=== PATIENT | male | born 1965 | race Caucasian/White ===

== ENCOUNTER 2019-01-11 11:12 | Emergency (ER) | payer OTHER, SELFPAY ==
[2019-01-11 11:13] VITALS: BP 156/97; PULSE 88; RESP 20; TEMP 36.5; O2SAT 99; BMI 27.8
--- NOTE | 2019-01-11 11:18 | EKG12_ITS ---
Test Reason : GENERAL ILLNESS
--- NOTE | 2019-01-11 11:18 | RAD_ITS ---
STUDY: X-RAY CHEST REASON FOR EXAM: Male, 53 years old. Cough and fever. Chest pain. TECHNIQUE: PA and lateral views of the chest. COMPARISON: None. FINDINGS: Hyperinflation. Mild increase in markings at the lung bases suggesting mild scarring. There is no demonstrated pleural abnormality. Normal size heart. Normal mediastinum and [place]. Normal visualized pulmonary arteries. There is atherosclerotic tortuosity of the aortic arch and descending thoracic aorta. There are diffuse degenerative changes of the visualized thoracic spine. Normal visualized ribs, clavicles, and shoulders. There is no demonstrated abnormality of the visualized soft tissue structures of the upper abdomen. RAD/Chest PA and Lateral IMPRESSION: Hyperinflation. Findings suggestive of mild scarring at the lung bases. Electronically Signed: Augustin Clark, at 12:30 EST , Service support ,
[2019-01-11 11:39] VITALS: BP 148/92; PULSE 90; RESP 14; RESP 18; O2SAT 97; O2SAT 98
--- NOTE | 2019-01-11 14:07 | ED.VISSUMM ---
- ER Visit Summary Date of Service: 01/11/19 Chief Complaint: Fever and cough History of Present Illness: The patient is a 53 M who states that last week at the end of the week he was having diarrhea. Friday he began to have a cough and the diarrhea resolved. Around noon on Friday he developed nausea vomiting. Temperature yesterday 102.8. He notes continued weakness and cough though he has not had any fever. He describes a chest pain on the anterior surface that is sharp and worse with touch. Physical Examination: Afebrile vital signs stable Gen: Well-nourished well-developed Head: Normocephalic atraumatic Eyes: Perrl EOMI ENT: TMs clear no rhinorrhea moist mucous membranes Neck: Supple no lymphadenopathy no JVD nontender CVS: Regular rate rhythm no murmurs normal S1-S2 Respiratory: No distress clear to auscultation bilaterally anterior chest wall is tender to palpation. He has a dry cough. Abdomen: Soft nontender nondistended normal bowel sounds no masses Back: Nontender Extremity: Nontender no edema Skin: Normal color no rash Neuro: alert orientated ?3 CN II-XII intact normal strength sensation reflexes gait cerebellar Psych: Normal affect normal mood Test Results: KG through nursing protocol showed a sinus rhythm at a rate of 85 without ectopy. Chest x-ray showed no infiltrate. Influenza swab was negative. Emergency Department Course and Treatment: Patient will be discharged home with supportive care. Instructions for fluid hydration and anti-inflammatories for the chest pain. Impression: 1. Viral respiratory illness This note was generated with [employer] dictation software. It may contain incorrect words, spelling, and punctuation that were not noted in review of the chart prior to signing ED Disposition - Plan for ED Patient: Disposition: Home or Assisted Living Instructions: ED URI Viral Referrals: Adalberto Grant MD [STAFF PHYSICIAN] - As Needed
[2019-01-11 14:18] VITALS: BP 133/80; PULSE 85; RESP 14; O2SAT 98
== END 2019-01-11 14:19 | disposition home or self-care (01) ==
PROVIDERS: Emergency Provider Emergency Medicine
DX: B34.9 Viral infection, unspecified (principal); M54.9 Dorsalgia, unspecified; R19.7 Diarrhea, unspecified; R11.2 Nausea with vomiting, unspecified; Z72.0 Tobacco use; R05 Cough; R53.1 Weakness
CPT/HCPCS: 71046; 87804; 93005; 94760; 99282

== ENCOUNTER → 2019-07-15 14:19 | Outpatient (CLI) | payer OTHER, SELFPAY ==
[2019-07-15 08:09] VITALS: BMI 27.8
[2019-07-15 14:48] LABS: Bacteria 0 SEEN /hpf (None Seen); Mucous, Urine 0 SEEN /hpf (<or=2+); Red Blood Cells-Urine 0 SEEN /hpf (0-5)
[2019-07-15 14:59] LABS: Color, Urine Yellow (Yellow); Glucose, Dipstick Normal (Normal); Ketone-Dipstick Negative (Negative); Leukocyte Esterase-Dipstick 25 /ul (Negative); Nitrite-Dipstick Negative (Negative); Occult Blood-Urine 10 /ul (Negative); Protein-Dipstick Negative (Negative); Urine Bilirubin Dipstick Negative (Negative); Urine Clarity Clear (Clear); Urine Urobilinogen Normal (Normal)
[2019-07-15 15:17] LABS: Squamous Epithelial Cells - UA 0-5 SEEN /hpf (0-5); White Blood Cells 0-5 SEEN /hpf (0-5)
== END ==
PROVIDERS: Referring Provider Physician Assistant; Visit Provider Physician Assistant
DX: R31.9 Hematuria, unspecified (principal)
CPT/HCPCS: 81001; 87086

== ENCOUNTER 2019-07-17 08:16 | Observation (INO) | payer OTHER, SELFPAY ==
[2019-07-15 08:09] VITALS: BMI 27.8
[2019-07-17] VITALS (7 sets, daily range): BP systolic 124–156; BP diastolic 72–106; PULSE 83–127; RESP 17–20; TEMP 37–38.1; O2SAT 90–94; BMI 28.4; BMI 28.7
--- NOTE | 2019-07-17 08:24 | CT_ITS ---
STUDY: CT ABDOMEN AND PELVIS WITHOUT CONTRAST REASON FOR EXAM: Male, 54 years old. Right flank pain RADIATION DOSAGE (If Supplied By Facility): CTDIvol = ( 10.09 ) mGy, DLP = ( 529.18 ) mGycm TECHNIQUE: Transaxial images were obtained from the dome of the diaphragm to the symphysis pubis without oral contrast, and without intravenous contrast. Sagittal and coronal images were reconstructed. Individualized dose optimization techniques were used for this CT. COMPARISON: None. FINDINGS: Right pleural effusion with basilar consolidation/atelectasis. The visualized portions of the heart are within normal limits. Normal liver. Normal gallbladder and extrahepatic biliary system. Normal spleen. Normal pancreas. Normal bilateral adrenal glands. Nonobstructive 2 mm stone in the right kidney. Normal left kidney. Normal visualized stomach. Normal small intestine. Normal colon. The appendix is visualized and appears normal. Calcified abdominal aorta. Normal inferior vena cava. Normal retroperitoneum. Normal urinary bladder. Mild fatty density at the inguinal canals. Normal abdominal wall. Normal osseous structures. CT/Abdomen/Pelvis without Cont IMPRESSION: Nonobstructive right renal stone. Right pleural effusion with basilar consolidation/atelectasis. Electronically Signed: Jermain Dominique DO at 9:10 EDT Tel [phone], Service support ,
[2019-07-17] MEDS: Ondansetron 4 MG/2 ML Vial IV ×2 (08:29→12:13)
[2019-07-17] MEDS: Ketorolac 30 MG/ML Syringe 15 MG IV (08:29)
[2019-07-17] MEDS: 0.9% Normal Saline 1,000 ML 250 ML IV (08:32)
--- NOTE | 2019-07-17 08:38 | ED.DCSUM_ITS ---
History of Present Illness Chief Complaint: Flank Pain Narrative: Patient presenting due to concern for kidney stone. Patient has an underlying history of having a kidney stone approximately 20 years ago. Patient states that over the course of this last week he has been dealing with intermittent hematuria and right-sided flank pain. Patient states that there was one episode where he had a fever of 100.0. He now is having some nausea and dry heaves. Pain is severe, colicky, and has no exacerbating relieving factors. Patient states that he went to urgent care and was diagnosed as likely having a kidney stone, but has not had any sort of imaging. He denies any diarrhea associated with this. He denies any back injury, numbness, weakness, loss of bowel or bladder function. Review of systems otherwise negative. Past Medical History - Allergies and Home Meds Allergies/Adverse Reactions: Allergies No Known Allergies Allergy (Verified 07/17/19 08:16) Primary Care Physician: Carlo Banda MD [STAFF PHYSICIAN] - 3-5 Days Past Medical History: - - Past history of nephrolithiasis Smoking Status: Current every day smoker Review of Systems All systems negative except as indicated General: Reports: Fever Gastrointestinal: Reports: Nausea, Vomiting Genitourinary: Reports: Hematuria, - - Flank pain Physical Exam Vital Signs/Narrative: Vital Signs Temp Pulse Resp BP Pulse Ox 07/17/19 08:17 98.6 F 83 17 124/72 H 92 Inital Vital Signs reviewed: Yes General: Well nourished, Well developed, Acute Distress - Secondary to pain Head: Normocephalic, Atraumatic Eyes: Perrl, EOMI ENT: Moist mucous membranes, No rhinorrhea Neck: Supple, Nontender Cardiovascular: Regular rate, Regular rhythm, No murmurs, - - 2+ radial pulses bilaterally symmetric, 2+ PT pulses bilaterally symmetric Respiratory: No distress, CTA bilaterally, Chest nontender Abdomen: Soft, Nontender, Nondistended, Normal bowel sounds, - - Right-sided CVA tenderness to percussion without evidence of overlying vesicular rash, deformity, or skin changes Back: Nontender, Normal Inspection Extremities: Nontender, No edema Skin: Normal color, No rash Neurological: Alert, Oriented x3, Cranial nerves II-XII grossly intact, Normal Strength, Normal Sensation Psychological: Normal affect, Normal Mood Diagnostic/Tx/Re-eval - EKG Initial EKG Interpretation: - - Sinus rhythm of 85 with isoelectric with normal T waves no evidence of right particular strain or S1, Q3, T3 morphology - Medical Decision Making Patient with significant flank pain. IV was established she was given Toradol morphine Zofran and fluids. CBC and chemistry grossly unremarkable. CT abdomen and pelvis was performed which ended up showing the patient rather than having a obstructive stone on the right side, he had a nonobstructive stone in the kidney, but has a sizable pleural effusion with infiltrate. I went back and reinterviewed the patient, and he states that his symptoms really started more so with malaise and pleuritic chest pain. Only recent travel was over the summer to and from [place], but nothing within the last couple of weeks. No recent surgeries, hemoptysis, or history of DVT or PE. Patient is an everyday smoker. CT angiogram demonstrated no evidence of pulmonary embolus, but shows infiltrative process in the right lung with associated effusion. Patient had a leukocytosis of 14. At this point given the severity of the patient's pain, the high likelihood of a transudate of effusion, I believe that he warrants admission. Patient's will have blood cultures drawn, will be given Rocephin and azithromycin, and will be admitted to the hospital. Disposition: Admit to Med Surg ED Disposition - Plan for ED Patient: [facility] Diagnosis: Pneumonia, Pleural effusion
[2019-07-17 08:39] LABS: Basophil# 0.03 X10^3/uL; Basophil% 0.2 % (0-1); Eosinophils% 3.5 % (0-5); Hematocrit 46.7 % (40-54); Hemoglobin 15.2 g/dL (13.0-16.5); Lymphocyte % 19.6 % (19-41); Mean Corp Hgb Conc 32.5 g/dL (32-36); Mean Corpuscular Hgb 30.2 pg (27.0-32.0); Mean Corpuscular Volume 92.7 fL (80-94); Mean Platelet Vol. 9.8 fl (6.2-12.0); Monocyte# 0.95 X10^3/uL; Monocyte% 6.6 % (0-10); NRBC Flagged by Analyzer 0 % (0-5); Neutrophil # 9.98 X10^3/uL (2.7-7.7); Neutrophil % 69.7 % (47-70); Platelet Count 317 K/mm3 (150-450); RBC Distribution Width CV 13.1 % (11.6-14.6); RBC Distribution Width SD 44.7 fl (35.1-43.9); Red Blood Count 5.04 M/mm3 (4.6-6.2); White Blood Count 14.3 K/mm3 (4.4-11.0)
[2019-07-17] MEDS: morphine 8 MG/ML Syringe IV (08:39)
[2019-07-17 08:51] LABS: Anion Gap 3 (5-15); BUN 11 mg/dL (7-18); Calcium,Total 9.1 mg/dL (8.5-10.1); Chloride 107 mmol/L (98-107); Creatinine, Serum 0.92 mg/dL (0.70-1.30); EST Glomerular Filtration Rate 91 mL/min (>60); Est Glom Filt Rate - Afr Amer 110 mL/min (>60); Estimated Creatinine Clearance 86.74 ml/min; Glucose 107 mg/dL (74-106); Sodium Level 139 mmol/L (136-145)
--- NOTE | 2019-07-17 09:11 | CT_ITS ---
STUDY: CTA CHEST REASON FOR EXAM: Male, 54 years old. PE RADIATION DOSAGE (If Supplied By Facility): CTDIvol = ( 8.30 ) mGy, DLP = ( 402.29 ) mGycm TECHNIQUE: The examination was performed with the intravenous administration of 100 IV Isovue 300. Post-processing of the angiographic images was performed, with multiplanar reformation and 3D reconstruction. Individualized dose optimization techniques were used for this CT. COMPARISON: None. FINDINGS: Normal enhancement of the main pulmonary artery and right and left pulmonary arteries. Normal enhancement of the bilateral peripheral pulmonary arteries. There is no demonstrated pulmonary embolism. Normal thoracic aorta and visualized great vessels. There is no demonstrated aortic dissection. Normal heart and pericardium. Normal mediastinum. Normal hilar regions. Normal visualized trachea and bronchi. The lungs are well expanded. Mild right pleural effusion with basilar consolidation/atelectasis. Normal chest wall structures. Normal osseous structures. Normal visualized upper abdomen. CT/CTA Chest W/WO Contrast IMPRESSION: No demonstrated pulmonary embolism or arterial dissection. Right pleural effusion with basilar consolidation/atelectasis. Electronically Signed: Jermain Dominique DO at 10:03 EDT Tel [phone], Service support ,
--- NOTE | 2019-07-17 09:13 | EKG12_ITS ---
Test Reason : DYSRHYTHMIA Blood Pressure : / mmHG Vent. Rate : 085 BPM Atrial Rate : 085 BPM P-R Int : 170 ms QRS Dur : 090 ms QT Int : 352 ms P-R-T Axes : 015 001 020 degrees QTc Int : 418 ms Normal sinus rhythm Normal ECG Confirmed by FAMILIA GARCIA [id number]), senior technical editor ERIK SALAZAR ([id number]) on 07/26/2019 2:56:41 PM Referred By: Odilon Tatum Confirmed By:FAMILIA GARCIA
[2019-07-17] MEDS: Morphine 4 MG/ML Syringe IV ×2 (10:18→13:43)
[2019-07-17] MEDS: Ceftriaxone 1 GM/50 ML BAG IV (10:27)
--- NOTE | 2019-07-17 10:38 | PCM.HP.STD ---
Problem List (1) Community acquired pneumonia Status: Acute (2) History of kidney stones Status: Chronic (3) Tobacco abuse Status: Chronic (4) Pleural effusion Status: Acute History of Present Illness Date of Admission: 07/17/19 Chief Complaint: Right lower chest/right flank pain. The patient is a 54 year old M with past medical history as mentioned above presented to the emergency room because of 1 week history of right lower chest/right flank pain. His illness started 1 week ago with pain in the right flank region, more up towards right lower chest, intermittent pain, sharp stabbing pain, 9 out of 10 in severity, associated with mild shortness of breath, aggravated by taking a deep breath and somewhat relieved with ibuprofen and Tylenol. Initially, patient thought that this pain is probably due to kidney stones because he has history of kidney stones. He continued to have this pain in the next 3 to 4 days and on Friday, he started having low-grade fever of just above 100 Fahrenheit. Again, he took Tylenol Profen and the fever went away. This pain came back again and patient went to see his PCP 2 days ago where he had urinalysis, found to have some blood in the urine and thinking was told that he may have kidney stones. During those days, he has been having mild cough with small amount of thick green sputum. In the emergency department, patient was afebrile, having shallow breathing because of pleuritic chest pain, other vital signs were stable. Routine blood work was remarkable for leukocytosis, otherwise normal. EKG revealed normal sinus rhythm, normal IL interval, normal QRS, no acute ischemic changes. Troponin was negative. CT scan abdomen and pelvis without contrast revealed nonobstructive right kidney stone, right pleural effusion consolidation. CTA chest done and showed no PE or dissection, revealed right pleural effusion with right basilar consolidation. He is being admitted for community acquired pneumonia. Past Medical History Past Medical History (Chronic Problems): Chronic Problems (Last Reviewed 07/15/19 @ 08:09 by Camila Gee) History of kidney stones (Chronic) Tobacco abuse (Chronic) Allergies No Known Allergies Allergy (Verified 07/17/19 08:16) Home Medications: Ambulatory Orders Medication Instructions Recorded ibuprofen 600 mg tablet 600 mg PO Q6H PRN 07/15/19 Surgical History: no surgical history Psychiatric History: No pertinent psych hx Lives: Spouse/ Significant Other Smoking Status: Current every day smoker Tobacco Use: Cigarettes Alcohol: None Drugs: None - *Family History Maternal History Items: Cancer, Diabetes, - - Mother because of liver cancer. Paternal History Items: Diabetes Review of Systems Constitutional: Reports: Anorexia, Fever, Weakness, Fatigue. Denies: Chills Eyes: Denies: Blurred vision, Double vision, Drainage, Redness HEENT: Denies: Difficulty Hearing, Ear Pain, Eye Pain, Nasal Congestion, Sore Throat Cardiovascular: Reports: Chest Pain. Denies: Chest Pressure, Chest Tightness, Edema, Heaviness, Orthopnea, Paroxysmal Noc. Dyspnea, Syncope Respiratory: Reports: Cough, Pleuritic Pain, Shortness of Breath, Shortness of breath at rest, Sputum production. Denies: Hemoptysis, Wheezing Gastrointestinal: Reports: Nausea. Denies: Abdominal Pain, Constipation, Diarrhea, Vomiting Genitourinary: Reports: Hematuria. Denies: Dysuria, Frequency Musculoskeletal: Denies: Arm Pain, Back Pain, Foot Pain Skin: Denies: Dryness, Rash Neurological: Denies: Balance problems, Blurred vision, Double vision, Change in Speech, Slurred speech, Confusion, Headaches, Incoordination, Numbness Psychiatric: Denies: Anxiety, Depression Endocrine: Denies: Change in Body Habitus, Polydipsia, Polyuria VTE Information - Inpt Only VTE Present on Admission: No VTE Mechan Device Prophylaxis: None VTE Pharm Prophylaxis ordered?: No Patient Problems: Active and Suspected Problems (Last Reviewed 07/15/19 @ 08:09 by Camila Gee) Community acquired pneumonia (Acute) Pleural effusion (Acute) - Physical Exam General: Alert, Oriented x3, Cooperative, No apparent distress HEENT: Atraumatic, PERRLA, EOMI, Normocephalic Oral: Moist Mucosa, No Gingival or Mucosal Lesions/ Ulcerations Neck: Supple, No JVD, Negative Carotid Bruits, Trachea Midline, Thyroid Normal Size and Texture Lungs: No rhonchi, No wheeze, Diminished, Rales, - - Decreased breath sounds on the right base with coarse crackles. Cardiovascular: Regular rate, Regular Rhythm, Normal S1, Normal S2, No murmurs, PMI Normal Abdomen: Bowel Sounds Present, Soft, Non Tender, Non-Distended, No Hepato-splenomegaly Extremities: No clubbing, No cyanosis, No edema Skin: No rashes, No breakdown Lymphatic: No Cervical, Supraclavicular, or Inguinal Adenopathy Neurological: Cranial nerves II-XII grossly intact, Motor Exam 5/5 strength throughout Psych/Mental Status: Normal Affect, Appropriate, Alert and oriented to time, place, person, mood and affect Vital Signs Temp Pulse Resp BP Pulse Ox 98.6 F 83 17 124/72 H 92 07/17/19 08:17 07/17/19 08:17 07/17/19 08:17 07/17/19 08:17 07/17/19 08:17 Oxygen Delivery Method Room Air Weight: 186 lb 15.232 oz Body Mass Index (BMI) 28.4 Laboratory Tests Past 24 Hrs 07/17/19 07/17/19 07/17/19 08:25 08:25 08:25 WBC 14.3 H RBC 5.04 Hgb 15.2 Hct 46.7 MCV 92.7 MCH 30.2 MCHC 32.5 RDW Std Deviation 44.7 H RDW Coeff of Sharona 13.1 Plt Count 317 MPV 9.8 Immature Gran % (Auto) 0.400 Neut % (Auto) 69.7 Lymph % (Auto) 19.6 [place] % (Auto) 6.6 Eos % (Auto) 3.5 Baso % (Auto) 0.2 Absolute Neuts (auto) 10.0 H Absolute Lymphs (auto) 2.80 Nucleated RBC % 0 Sodium 139 Potassium 4.0 Chloride 107 Carbon Dioxide 29.0 Anion Gap 3 L BUN 11 Creatinine 0.92 Estim Creat Clear Calc 86.74 Est GFR (MDRD) Af Amer 110 Est GFR (MDRD) Non-Af 91 BUN/Creatinine Ratio 12.0 Glucose 107 H Calcium 9.1 Troponin I < 0.015 Clinical Impression(s) from Imaging Studies Abdomen/Pelvis CT 07/17/19 08:24 IMPRESSION: Nonobstructive right renal stone. Right pleural effusion with basilar consolidation/atelectasis. Electronically Signed: Jermain Dominique DO at 9:10 EDT Tel [phone], Service support , Chest CTA 07/17/19 09:11 IMPRESSION: No demonstrated pulmonary embolism or arterial dissection. Right pleural effusion with basilar consolidation/atelectasis. Electronically Signed: Jermain Dominique DO at 10:03 EDT Tel [phone], Service support , Assessment/Plan All Active Problems (Last Reviewed 07/15/19 @ 08:09 by Camila Gee) Community acquired pneumonia (Acute) Pleural effusion (Acute) This is a 54 years old male patient presented to the emergency room because of right lower/right flank pain with mild shortness of breath, elective cough with minimal sputum as well as low-grade fever and he was found to have right lower lobe consolidation with right pleural effusion and he is being admitted for community acquired pneumonia. #1 acute right lower lobe probably bacterial community acquired pneumonia: CTA chest reviewed. Patient's pain is likely due to pleuritic chest pain/pleurisy. EKG showed no acute ischemic changes. Troponin is negative. Her leukocytosis, no evidence of sepsis or severe sepsis. Plan: Admit to [facility] floor, telemetry, blood culture, urine culture, sputum culture, pneumococcal and Legionella antigen, start IV Rocephin and Zithromax, IV morphine PRN, IV Toradol [id number], Tylenol PRN, IV antiemetics, bronchodilators, chest physiotherapy, incentive spirometer, repeat CBC and BMP tomorrow morning, PT OT evaluation and treatment. #2 right pleural effusion: Likely parapneumonic effusion. At this time, no indication for diagnostic or therapeutic thoracentesis. Patient will need follow-up x-ray to ensure resolution of the pleural effusion. Plan to treat underlying pneumonia. #3 hematuria/history of kidney stones: Urinalysis that was done therefore yesterday showed moderate amount of blood, there was 0 WBCs microscopically. Patient did mention that his urine has been dark. CT scan abdomen and pelvis revealed nonobstructing right kidney stone. Urinalysis ordered today, pending. Plan for IV fluids, monitor kidney function. #4 tobacco abuse: NicoDerm patch if desired. #5 DVT prophylaxis: Low risk patient, no prophylaxis indicated. This note was generated with [employer] software. It may contain incorrect words, spelling, and punctuation that were not noted in checking the note before signing. Code Visit Inpatient E&M: 01706 Init Hosp L3
--- NOTE | 2019-07-17 11:30 | NURSING ---
rocephin and zithromax not on unit for pt administration
--- NOTE | 2019-07-17 11:51 | NURSING ---
pt /staff made aware of need for urine specimens and sputum specimen that needs obtained
[2019-07-17] MEDS: guaiFENesin 1,200 MG Tablet 1200 MG PO (12:05)
[2019-07-17] MEDS: 0.9% Normal Saline 1,000 ML 100 ML IV (12:05)
[2019-07-17] MEDS: Morphine 2 MG/ML Syringe IV (12:06)
[2019-07-17] MEDS: Ipratropium/Albuterol Sulfate 3 ML AMPUL.NEB INHALATION (13:12)
[2019-07-17 13:14] LABS: Bacteria 0 SEEN /hpf (None Seen); Mucous, Urine 0 SEEN /hpf (<or=2+); Red Blood Cells-Urine 0 SEEN /hpf (0-5)
[2019-07-17 13:30] LABS: Color, Urine Yellow (Yellow); Glucose, Dipstick Normal (Normal); Ketone-Dipstick 5 mg/dl (Negative); Leukocyte Esterase-Dipstick 25 /ul (Negative); Nitrite-Dipstick Negative (Negative); Occult Blood-Urine 50 /ul (Negative); Protein-Dipstick 30 mg/dl (Negative); Urine Bilirubin Dipstick Negative (Negative); Urine Clarity Clear (Clear); Urine Urobilinogen 1 mg/dl (Normal)
[2019-07-17] MEDS: Ketorolac 15 MG/ML Vial IV (13:39)
[2019-07-17 13:40] LABS: Squamous Epithelial Cells - UA 0-5 SEEN /hpf (0-5); White Blood Cells 0-5 SEEN /hpf (0-5)
--- NOTE | 2019-07-17 14:23 | NURSING ---
dr spencer came to reexamine pt and discuss care with pt-dr spencer offerred him dilaudid instead of morphine but pt actually states his pain is good right now, pt requesting to go off unit to smoke, was offerred nicotine patch and pt refusing pt demands to sign out AMA, pt signed form and was escorted out per family
--- NOTE | 2019-07-19 14:45 | PCM.DC.SUM ---
Discharge Date and Diagnosis Date of Admission: 07/17/19 Date of Discharge: 07/17/19 - Primary Discharge Diagnosis #1 right lower lobe community-acquired pneumonia. 2 right pleural effusion, likely parapneumonic. - Secondary Discharge Diagnosis Chronic Problems (Last Reviewed 07/15/19 @ 08:09 by Camila Gee) History of kidney stones (Chronic) Tobacco abuse (Chronic) Hospital Course and Treatment Imaging Results: Clinical Impression(s) from Imaging Studies Abdomen/Pelvis CT 07/17/19 08:24 IMPRESSION: Nonobstructive right renal stone. Right pleural effusion with basilar consolidation/atelectasis. Electronically Signed: Jermain Dominique DO at 9:10 EDT Tel [phone], Service support , Chest CTA 07/17/19 09:11 IMPRESSION: No demonstrated pulmonary embolism or arterial dissection. Right pleural effusion with basilar consolidation/atelectasis. Electronically Signed: Jermain Dominique DO at 10:03 EDT Tel [phone], Service support , Operations: None Procedures: None Summary of Care Provided: The patient is a 54 year old M presented to the emergency room because of right lower chest/right flank pain with mild shortness of breath and productive cough as well as low-grade fever and he was found to have right lower lobe consolidation with right pleural effusion consistent with community-acquired pneumonia. Patient was admitted to the floor and started on IV Rocephin and Zithromax, started on IV morphine and IV Toradol for pain. CT scan abdomen also revealed nonobstructing right kidney stone without evidence of hydronephrosis. His routine blood work was remarkable only for leukocytosis, otherwise normal. EKG revealed no acute ischemic changes. Troponin was negative. Blood culture showed no growth in 48 hours. Pneumococcal and Legionella antigen were negative. Urine culture showed no growth. After admission, patient complained of increasing pain for which he was given higher dose of morphine. Patient remained standing at the bedside. I went to see the patient and he did mention that his pain improved after receiving 4 mg of IV morphine. He requested to go off unit to smoke outside. I offered him a nicotine patch but he refused. I informed the patient that according to the hospital policy, he cannot go off the floor to smoke and come back. He mentioned that he is going out to smoke anyway and he does not care. I tried to explain to him that this is the hospital policy and we cannot violate this policy. He mentioned that he will just leave the hospital and go to another hospital. Patient signed the AMA paperwork and he left the hospital AGAINST MEDICAL ADVICE. - Physical Exam Vital Signs Temp Pulse Resp BP Pulse Ox 98.7 F 115 H 20 H 156/92 H 93 07/17/19 14:04 07/17/19 14:04 07/17/19 14:04 07/17/19 14:04 07/17/19 14:04 Oxygen Delivery Method Room Air Weight: 188 lb 11.451 oz Body Mass Index (BMI) 28.7 Intake and Output for Last 24 Hours 07/17/19 07/18/19 07/19/19 23:59 23:59 23:59 Intake Total 1008.34 / 1008.34 Balance 1008.34 / 1008.34 Microbiology Past 72 Hours 07/17/19 10:15 Blood Culture - Preliminary Blood Culture (Wb) - Anticubital Left No growth in 48 hours. 07/17/19 11:00 Blood Culture - Preliminary Blood Culture (Wb) - No Site/Description Given No growth in 48 hours. 07/17/19 13:05 Urine Culture - Preliminary Urine, Clean Catch Culture exhibits no growth. 07/17/19 13:05 Legionella Antigen - Final Urine, Clean Catch 07/17/19 13:05 Streptococcus pneumoniae Antigen (M - Final Urine, Clean Catch Home Medications: Medications to take at Discharge ibuprofen 600 mg tablet 600 mg PO Q6H PRN 07/15/19 Acetaminophen [Tylenol] 325 mg PO Q6H PRN PRN 07/17/19 Primary Care Physician: Care Physician,No Primary [Primary Care Provider] - Disposition: Against Medical Advice Minutes spent on discharge:: 25 Patient Condition:: Stable Medical Necessity - Tobacco Use Smoking Status: Current every day smoker Tobacco Use: Cigarettes Meaningful Use Info Meaningful Use Diagnoses (Choose all that apply): None applicable
== END 2019-07-17 14:20 | disposition left against medical advice (07) | DRG 194 ==
LOC: ED 10:12 → MS3 10:52
PROVIDERS: Admitting Provider Hospitalist; Emergency Provider Emergency Medicine; Visit Provider Hospitalist
DX: J15.9 Unspecified bacterial pneumonia (principal); A41.9 Sepsis, unspecified organism; J91.8 Pleural effusion in other conditions classified elsewhere; J98.11 Atelectasis; N20.0 Calculus of kidney; F17.210 Nicotine dependence, cigarettes, uncomplicated; Z87.442 Personal history of urinary calculi; Z83.3 Family history of diabetes mellitus; Z80.0 Family history of malignant neoplasm of digestive organs; E31.9 Polyglandular dysfunction, unspecified; R31.9 Hematuria, unspecified
CPT/HCPCS: 36415; 71275; 74176; 80048; 81001; 84484; 85025; 87040; 87086; 87449; 93005; 94640; 96365; 96367; 96375; 96376; 99218; 99284; J7030; Q9967; G0378; J2405

== ENCOUNTER → 2021-01-01 16:20 | Outpatient (CLI) | payer BC, MEDICAID, SELFPAY ==
[2021-01-01 16:20] VITALS: BMI 28.4
[2021-01-01 17:18] LABS: Absolute Lymphocyte Count 2.78 X10^3/uL (0.83-4.51); Absolute Neutrophil Count 6.2 X10^3/uL (2.0-7.7); Basophil# 0.04 X10^3/uL; Basophil% 0.4 % (0-1); Eosinophil# 0.12 X10^3/uL; Eosinophils% 1.2 % (0-5); Hematocrit 48.6 % (40-54); Hemoglobin 15.5 g/dL (13.0-16.5); Lymphocyte # 2.78 X10^3/ul (4.0); Mean Corp Hgb Conc 31.9 g/dL (32-36); Mean Corpuscular Hgb 28.9 pg (27.0-32.0); Mean Corpuscular Volume 90.5 fL (80-94); Mean Platelet Vol. 10.6 fl (6.2-12.0); Monocyte# 0.73 X10^3/uL; Monocyte% 7.4 % (0-10); NRBC Flagged by Analyzer 0 % (0-5); Neutrophil # 6.22 X10^3/uL (2.7-7.7); Neutrophil % 62.7 % (47-70); Platelet Count 289 K/mm3 (150-450); RBC Distribution Width CV 13.2 % (11.6-14.6); RBC Distribution Width SD 44.1 fl (35.1-43.9); Red Blood Count 5.37 M/mm3 (4.6-6.2); White Blood Count 9.9 K/mm3 (4.4-11.0)
[2021-01-01 17:36] LABS: ALB/GLOB Ratio 0.9 RATIO (0.9-2.4); AST(SGOT) 36 U/L (15-37); Alanine Aminotransfer ALT/SGPT 72 U/L (16-61); Albumin, Serum 4.1 g/dL (3.2-5.0); Alkaline Phosphatase 95 U/L (45-117); Anion Gap 7 (5-15); BUN 17 mg/dL (7-18); BUN/Creat Ratio 12.1 RATIO (10-20); Calcium,Total 9.5 mg/dL (8.5-10.1); Chloride 106 mmol/L (98-107); EST Glomerular Filtration Rate 55 mL/min (>60); Est Glom Filt Rate - Afr Amer 67 mL/min (>60); Globulin 4.4 g/dL (2.2-4.2); Glucose 92 mg/dL (74-106); Potassium 4.3 mmol/L (3.5-5.1); Protein, Total 8.5 g/dL (6.4-8.2); Sodium Level 140 mmol/L (136-145)
[2021-01-01 17:45] LABS: Hemoglobin A1c 6.4 % (3.8-5.6)
== END ==
PROVIDERS: PCP Family Medicine; Visit Provider Family Medicine
DX: R73.03 Prediabetes (principal); R10.9 Unspecified abdominal pain
CPT/HCPCS: 36415; 80053; 83036; 85025

== ENCOUNTER → 2021-01-05 17:11 | Outpatient (CLI) | payer BC, MEDICAID, SELFPAY ==
[2021-01-01 16:20] VITALS: BMI 28.4
--- NOTE | 2021-01-05 17:18 | CT_ITS ---
STUDY: LOW DOSE CT LUNG CANCER SCREENING REASON FOR EXAM: Male, 55 years old. TOBACCO USE RADIATION DOSAGE (If Supplied By Facility): CTDIvol = ( 4.02 ) mGy, DLP = ( 133.91 ) mGycm TECHNIQUE: No contrast was administered. Low dose technique was utilized (average mAS-38 and kVp 120). 1.25 mm axial source images with a slice interval of 1.25-mm were reconstructed in lung windows. 2.5 mm axial source images with a slice interval of 2.5-mm were reconstructed in lung windows. 5.0 mm axial source images with a slice interval of 5.0-mm were reconstructed in soft tissue windows. Nodule measured using lung windows on PACS and/or independent workstation with automated measurement of minimum and maximum diameter. Nodule measurement reported as average diameter rounded to the nearest whole number. Growth is defined as an increase ins size of greater than 1.5 mm. COMPARISON: 17 July 2019 Findings: There are no focal parenchymal high risk findings. There are scattered scars and calcified pleural parenchymal granuloma the. Central airways are patent. Pleural surfaces are intact. Mediastinal contents are poorly seen due to intrinsic limitations of technique. Liver is severely fatty infiltrated. Osseous structures are intact. CT/Low Dose CT Lung Screening IMPRESSION: 1. Lung RADS category 1. 2. Hepatic steatosis. Hepatology referral is advised. IMPORTANT NOTES FOR USE: ACR Lung-RADS Version 1.0 Assessment Categories Release Date: March 07, 2014 Category: Coded 0-4 bases on nodule(s) with highest degree of suspicion. Negative screen is defined as categories 1 and 2; a positive screen is defined as categories 3 and 4. Category 3 and 4A nodules that are unchanged on interval CT should be coded as category 2, and individuals returned to screening in 12 months. Category 4X: Category 3 or 4 nodules with additional imaging findings that increase the suspicion of lung cancer, such as spiculation, GGN that doubles in size in 1 year, enlarged lymph notes, etc. Category Modifiers: S (significant finding unrelated to lung cancer) and C (prior history of treated lung cancer) may be added to the 0-4 Lung-RADS Electronically Signed: Presley Lewis MD at 18:21 EST Tel , Service support ,
== END ==
PROVIDERS: PCP Family Medicine; Referring Provider Family Medicine; Visit Provider Family Medicine
DX: Z12.2 Encounter for screening for malignant neoplasm of respiratory organs (principal); Z87.891 Personal history of nicotine dependence
CPT/HCPCS: 71271

== ENCOUNTER 2021-01-26 06:48 | Day surgery (SDC) | payer BC, MEDICAID, SELFPAY ==
[2021-01-10 14:26] VITALS: BMI 33.1
[2021-01-26] VITALS (7 sets, daily range): BP systolic 109–146; BP diastolic 60–83; PULSE 58–75; RESP 16–18; TEMP 36.1–37; O2SAT 95–98; BMI 33.3
--- NOTE | 2021-01-26 07:09 | HP_ITS ---
ADDENDUM by Dr. Trevor Leong MD on 01/17/21 at 1208 Addendum entered and electronically signed by Trevor Leong MD 01/17/21 12:08: Patient reports he has been on PPI for over 2 months with no resolution of symptoms. Intake Chief Complaint: Right mid back pain, history of kidney stones Allergies No Known Allergies Allergy (Verified 01/10/21 14:27) Medications ibuprofen 600 mg tablet 600 mg PO Q6H PRN 07/15/19 [History Confirmed 01/10/21] Acetaminophen [Tylenol] 325 mg PO Q6H PRN PRN 07/17/19 [History Confirmed 01/10/21] pantoprazole 40 mg tablet,delayed release 40 mg PO DAILY tab 01/10/21 [History Confirmed 01/10/21] Assessment & Plan Problems 1. Family history of colon cancer in mother Z80.0 2. RUQ pain R10.11 Plan - Dr. Trevor Leong MD The patient reports pain that radiates around his right side into the epigastric region. He says that it gets worse with activity but not with eating. He had a thoracotomy and may have nerve damage from this as the pain has started with his thoracotomy and has not gone away since and has been worsening. He did not have any abdominal pain before his thoracotomy. The patient is having right upper quadrant pain and he has a history of colon cancer in his mother and has never had a colonoscopy. I will perform an EGD and colonoscopy. If EGD and colonoscopy are negative I will get an ultrasound of his right upper quadrant to ensure the patient does not have cholelithiasis. I explained endoscopy in detail to the patient. I explained the risks including but not limited to stroke or heart attack with anesthesia, perforation of the GI tract, bleeding, infection. I explained that any of these could necessitate further emergency surgery. The patient understands and all questions were answered sufficiently. The patient wishes to proceed with procedure. Trevor Leong MD Pager: [facility] [address] [place] [address], [address] [place] [address] Office: Orders Orders: Colonoscopy 01/10/21 Z80.0 EGD 01/10/21 R10.11 01/17/21 1208 <Electronically signed by Trevor lange MD> Date _ Trevor Leong MD cc: Dr. Alessandro Kaye, DO ~* Signed Intake Vital Signs 01/10/21 Height 5 ft 8 in 01/10/21 Weight: 218 lb 4 oz 01/10/21 BP 175/109 H 01/10/21 Blood Pressure Location Rt brachial 01/10/21 Position Sitting 01/10/21 Respiration 20 H 01/10/21 Pulse 102 H 01/10/21 Pulse Source NIBP 01/10/21 Temp 98.4 F 01/10/21 Temp Source Temporal 01/10/21 Pulse Oximetry (%) 96 01/10/21 Oxygen Delivery Method room air Intake Visit Reasons: CSCOPE, FAMILY HX, POSSIBLE EGD Chief Complaint: Right mid back pain, history of kidney stones Allergies No Known Allergies Allergy (Verified 01/10/21 14:27) Medications ibuprofen 600 mg tablet 600 mg PO Q6H PRN 07/15/19 [History Confirmed 01/10/21] Acetaminophen [Tylenol] 325 mg PO Q6H PRN PRN 07/17/19 [History Confirmed 01/10/21] pantoprazole 40 mg tablet,delayed release 40 mg PO DAILY tab 01/10/21 [History Confirmed 01/10/21] PFSH Medical History (Updated 01/10/21 @ 14:[address] Trevor Leong MD) Pneumonia (Resolved) Community acquired pneumonia (Resolved) History of kidney stones (Chronic) Tobacco abuse (Chronic) Pleural effusion (Resolved) Emphysema of lung (Acute) GERD (gastroesophageal reflux disease) (Acute) History of empyema of pleura (Acute) History of pneumothorax (Acute) Hyperlipidemia (Acute) Pre-diabetes (Acute) Renal calculi (Acute) Surgical History History of thoracotomy (Acute ~07/2019) Family History (Updated 01/10/21 @ 14:26 by Laurita Castillo) Mother Colon cancer Diabetes Hypertension Cancer liver Father Diabetes Social History (Updated 01/10/21 @ 14:[address] Trevor Leong MD) Smoking Status: Current every day smoker HPI HPI HPI: FAMILIA EASON, is a 55 M who presents to the office today for HPI HPI Surgical H&P: Yes HPI: FAMILIA EASON, is a 55 M who presents to the office today for Right upper quadrant and epigastric pain. The patient reports that he had a thoracotomy for empyema approximately a year and half ago and ever since he has had pain radiating around the right side and into his epigastric region. He says that he is on a PPI which helped with his GERD but it is not helping with this pain in his right upper quadrant. The pain is constant and gets worse with activity. It does not gets worse or better with eating.He does not have any nausea or vomiting. Patient's mother had colon cancer at around age 60 and he has never had a colonoscopy. He denies blood in his stool. ROS General General: Yes weight change; no fatigue Cardio Cardiovascular: No murmur, pacemaker, heart disease, atrial fibrillation, high blood pressure, heart attack, heart stent, palpitations, shortness of breat with exertion or chest pain Psych Psychiatric: No depression or anxiety Resp Respiratory: No shortness of breath, No sleep apnea, No cough, No COPD, No asthma, No emphysema, No wheezing Gastro Gastrointestinal: Yes abdominal pain, No nausea or vomiting, Yes diarrhea, Yes constipation, No blood in stool, Yes acid reflux, No hemorrhoids, No ulcers, No gallbladder problem, No black,tarry stools Edward Hematologic: No blood thinners Exam Const General: cooperative Orientation: alert, oriented x3 Resp Effort & Inspection: normal respiratory effort Auscultation: clear to auscultation bilaterally Cardio Rate: regular rate Rhythm: regular rhythm Heart Sounds: no murmurs GI Inspection: non-distended Palpation: soft, nontender Assessment & Plan Problems 1. Family history of colon cancer in mother Z80.0 2. RUQ pain R10.11 Plan The patient reports pain that radiates around his right side into the epigastric region. He says that it gets worse with activity but not with eating. He had a thoracotomy and may have nerve damage from this as the pain has started with his thoracotomy and has not gone away since and has been worsening. He did not have any abdominal pain before his thoracotomy. The patient is having right upper quadrant pain and he has a history of colon cancer in his mother and has never had a colonoscopy. I will perform an EGD and colonoscopy. If EGD and colonoscopy are negative I will get an ultrasound of his right upper quadrant to ensure the patient does not have cholelithiasis. I explained endoscopy in detail to the patient. I explained the risks including but not limited to stroke or heart attack with anesthesia, perforation of the GI tract, bleeding, infection. I explained that any of these could necessitate further emergency surgery. The patient understands and all questions were answered sufficiently. The patient wishes to proceed with procedure. Trevor Leong MD Pager: [facility] [address] [place] [address], [address] [place] [address] Office: Orders Orders: Colonoscopy Today Z80.0 EGD Today R10.11 Coding Level of Care Code Off vis,new,level 3 Diagnoses Family history of colon cancer in mother Z80.0 RUQ pain R10.11 I have re-examined the patient. There are no clinical changes since date of exam.
[2021-01-26] MEDS: Lactated Ringers 1,000 ML 100 ML IV (07:15)
--- NOTE | 2021-01-26 08:00 | IMM_PTH ---
PATIENT: FAMILIA EASON LOC: EN U#:[id number] AGE/SX: 55/M ROOM: RE01/26/[address]: Dr. Trevor Leong MD : 1965 BED: DIS: 01/26/2021 SPEC #: [id number] RECD: 01/26/21 10:39 STATUS: PAT REJacky #: [id number] GITA: 01/26/21 08:[address]: Trevor Leong DEPT: IMMUNOHISTOCHEMISTRY RECD BY: Danielle Lopez ENTERED: 01/26/21 10:43 SP TYPE: IMMUNO OTHR DR: Dr. Alessandro Kaye DO Tissues: Stomach, NOS Procedures: H Pylori (initial) PHYSICIAN & INSTITUTION [place] [address] SPECIMEN INFORMATION: Tissue Source: Colonoscopy, EGD ([facility] [place]) Clinical Info: RUQ pain, family history colon cancer Specimen Number: [id number] CPT code: 09890 METHODOLOGY: Deparaffinized sections of prefer/formalin-fixed tissue or PAP/DQ stained slides are incubated with monoclonal/polyclonal antibodies/oligonucleotide probes. Localization is made via biotin free immunoperoxidase method. Appropriate controls are performed and reacted as expected. Results on target cell population are indicated in the following table: RESULTS: ANTIBODY / CLONE RESULT H Pylori (polyclonal) negative These tests were developed and their performance characteristics determined by [facility]. They may not have been cleared or approved by the U.S. Food and Drug Administration. The FDA has determined that such clearance or approval is not necessary. INTERPRETATION: Antrum, biopsy: Negative for Helicobacter pylori organisms. AM:irene 01/29/2021
--- NOTE | 2021-01-26 08:00 | EGD_PTH ---
PATIENT: FAMILIA EASON LOC: EN U#:[id number] AGE/SX: 55/M ROOM: RE01/26/[address]: Dr. Trevor Leong MD : 1965 BED: DIS: 01/26/2021 SPEC #: [id number] RECD: 01/26/21 10:21 STATUS: PAT GIUSEPPE #: [id number] GITA: 01/26/21 08:[address]: Trevor Leong DEPT: SURGICAL PATHOLOGY RECD BY: Aline Alegria ENTERED: 01/26/21 11:01 SP TYPE: EGD BIOPSY OTHR DR: Dr. Alessandro Kaye, DO Tissues: Gastric mucous membrane Procedures: Surgery Specimen Level IV HEADER OPERATION: Colonoscopy, EGD ([facility] [place]) PRE-OP DIAGNOSIS: RUQ pain, family history colon cancer TISSUE SUBMITTED: Antrum for H. pylori and path MICROSCOPIC DIAGNOSIS Gastric antrum, biopsy: Mild chronic gastritis. See comment. AM:irene 01/29/2021 COMMENT The results of immunohistochemistry for Helicobacter pylori will be reported separately ([id number]). MICROSCOPIC DESCRIPTION Slides are reviewed. GROSS DESCRIPTION Received in fixative is one container labeled with the patient's name and designated antrum biopsy. The specimen consists of two irregular fragments of light mckay soft tissue that in aggregate measure 0.6 x 0.6 x 0.1 cm. The specimen is totally submitted in one cassette. / AM:irene 01/26/21 TC:3 CPT: 70969
--- NOTE | 2021-01-26 08:18 | OP.CCLET_ITS ---
01/26/2021 Alessandro Kaye [address] [place] [address] Re : Upper GI endoscopy procedure for Jamarcus Quiñonez Dear Dr. Kaye This procedure was performed on Tuesday, January 26, 2021. My impressions and recommendations are as follows: Impressions : - Normal esophagus. - Normal stomach. - Normal examined duodenum. - Biopsies were taken with a cold forceps for Helicobacter pylori testing. Recommendations : - Discharge patient to home. - Resume previous diet. - Continue present medications. - Perform a RUQ ultrasound at appointment to be scheduled. My findings are described in the full procedure note, which is enclosed. If I can be of further assistance, please feel free to contact me at Doctor phone number(s): , Work: . Sincerely, Trevor Leong MD 01/26/2021 8:18:08 AM This report has been signed electronically.
--- NOTE | 2021-01-26 08:18 | OP.EGD_ITS ---
Patient Name: Jamarcus Quiñonez Procedure Date: 01/26/2021 7:49 AM Date of : 1965 Age: 55 Procedure: Upper GI endoscopy Indications: Abdominal pain in the right upper quadrant, Heartburn, Suspected gastro-esophageal reflux disease Providers: Trevor Leong MD Referring MD: Alessandro Kaye Medicines: Monitored Anesthesia Care Patient Profile: This is a 55 year old male. Refer to note in patient chart for documentation of history and physical. Complications: No immediate complications. Procedure: Pre-Anesthesia Assessment: - Prior to the procedure, a History and Physical was performed, and patient medications and allergies were reviewed. The patient's tolerance of previous anesthesia was also reviewed. The risks and benefits of the procedure and the sedation options and risks were discussed with the patient. All questions were answered, and informed consent was obtained. Prior Anticoagulants: The patient has taken no previous anticoagulant or antiplatelet agents. After reviewing the risks and benefits, the patient was deemed in satisfactory condition to undergo the procedure. After obtaining informed consent, the endoscope was passed under direct vision. Throughout the procedure, the patient's blood pressure, pulse, and oxygen saturations were monitored continuously. The gastroscope was introduced through the mouth, and advanced to the third part of duodenum. The upper GI endoscopy was accomplished without difficulty. The patient tolerated the procedure well. Scope In: 7:55:53 AM Scope Out: 7:58:34 AM Total Procedure Duration Time 0 hours 2 minutes 41 seconds Findings: The esophagus was normal. The stomach was normal. The examined duodenum was normal. Biopsies were taken with a cold forceps in the gastric antrum for Helicobacter pylori testing. Impression: - Normal esophagus. - Normal stomach. - Normal examined duodenum. - Biopsies were taken with a cold forceps for Helicobacter pylori testing. Recommendation: - Discharge patient to home. - Resume previous diet. - Continue present medications. - Perform a RUQ ultrasound at appointment to be scheduled. Procedure Code(s): --- Professional --- 30138, Esophagogastroduodenoscopy, flexible, transoral; with biopsy, single or multiple Diagnosis Code(s): --- Professional --- R10.11, Right upper quadrant pain R12, Heartburn CPT copyright 2017 [employer]. All rights reserved. The codes documented in this report are preliminary and upon inspector fuel hose review may be revised to meet current compliance requirements. Trevor Leong MD 01/26/2021 8:18:08 AM This report has been signed electronically. Number of Addenda: 0 Note Initiated On: 01/26/2021 7:49 AM
--- NOTE | 2021-01-26 08:19 | OP.CCLET_ITS ---
01/26/2021 Alessandro Kaye [address] [place] [address] Re : Colonoscopy procedure for Jamarcus Quiñonez Dear Dr. Kaye This procedure was performed on Tuesday, January 26, 2021. My impressions and recommendations are as follows: Impressions : - The entire examined colon is normal on direct and retroflexion views. - No specimens collected. Recommendations : - Discharge patient to home. - Resume previous diet. - Continue present medications. - Repeat colonoscopy in 5 years for screening purposes. My findings are described in the full procedure note, which is enclosed. If I can be of further assistance, please feel free to contact me at Doctor phone number(s): , Work: . Sincerely, Trevor Leong MD 01/26/2021 8:19:27 AM This report has been signed electronically.
--- NOTE | 2021-01-26 08:19 | OP.COLON_ITS ---
Patient Name: Jamarcus Quiñonez Procedure Date: 01/26/2021 7:59 AM Date of : 1965 Age: 55 Procedure: Colonoscopy Indications: Screening in patient at increased risk: Colorectal cancer in mother before age 60 Providers: Trevor Leong MD Referring MD: Alessandro Kaye Medicines: Monitored Anesthesia Care Patient Profile: This is a 55 year old male. Refer to note in patient chart for documentation of history and physical. Last Colonoscopy: none. The patient's first colonoscopy is today. Complications: No immediate complications. Procedure: Pre-Anesthesia Assessment: - Prior to the procedure, a History and Physical was performed, and patient medications and allergies were reviewed. The patient's tolerance of previous anesthesia was also reviewed. The risks and benefits of the procedure and the sedation options and risks were discussed with the patient. All questions were answered, and informed consent was obtained. Prior Anticoagulants: The patient has taken no previous anticoagulant or antiplatelet agents. After reviewing the risks and benefits, the patient was deemed in satisfactory condition to undergo the procedure. After I obtained informed consent, the scope was passed under direct vision. Throughout the procedure, the patient's blood pressure, pulse, and oxygen saturations were monitored continuously. The Colonoscope was introduced through the anus and advanced to the cecum, identified by appendiceal orifice and ileocecal valve. The colonoscopy was performed without difficulty. The patient tolerated the procedure well. The quality of the bowel preparation was good. Scope In: 8:01:14 AM Scope Withdrawal Time 0 hours 6 minutes 3 seconds Scope Out: 8:13:35 AM Total Procedure Duration Time 0 hours 12 minutes 21 seconds Findings: The entire examined colon appeared normal on direct and retroflexion views. Impression: - The entire examined colon is normal on direct and retroflexion views. - No specimens collected. Recommendation: - Discharge patient to home. - Resume previous diet. - Continue present medications. - Repeat colonoscopy in 5 years for screening purposes. Procedure Code(s): --- Professional --- 55233, Colonoscopy, flexible; diagnostic, including collection of specimen(s) by brushing or washing, when performed (separate procedure) Diagnosis Code(s): --- Professional --- Z80.0, Family history of malignant neoplasm of digestive organs CPT copyright 2017 [employer]. All rights reserved. The codes documented in this report are preliminary and upon business services tech review may be revised to meet current compliance requirements. Trevor Leong MD 01/26/2021 8:19:27 AM This report has been signed electronically. Number of Addenda: 0 Note Initiated On: 01/26/2021 7:59 AM
== END 2021-01-26 09:06 | disposition home or self-care (01) ==
LOC: EN 06:49 → AC 06:50
PROVIDERS: PCP Family Medicine; Referring Provider Family Medicine; Visit Provider Surgery
PROC: 0DJD8ZZ Inspection of Lower Intestinal Tract, Via Natural or Artificial Opening Endoscopic (ICD-10-PCS; CPT 45378; principal; 2021-01-26 07:55)
DX: K29.50 Unspecified chronic gastritis without bleeding (principal); R10.11 Right upper quadrant pain; R12 Heartburn; Z80.0 Family history of malignant neoplasm of digestive organs; Z87.442 Personal history of urinary calculi; F17.200 Nicotine dependence, unspecified, uncomplicated
CPT/HCPCS: 43239; 45378; 87426; 88305; 88342; C9803; J7120; J2405

== ENCOUNTER → 2021-02-02 09:43 | Outpatient (CLI) | payer BC, MEDICAID, SELFPAY ==
[2021-01-26 07:17] VITALS: BMI 33.3
--- NOTE | 2021-02-02 09:43 | US_ITS ---
STUDY: ABDOMINAL ULTRASOUND - RIGHT UPPER QUADRANT REASON FOR VISIT: Male, 55 years old ruq pain TECHNIQUE: Ultrasound evaluation of the right upper quadrant was performed with real-time and static givens-scale imaging. TECHNICAL QUALITY: Adequate. COMPARISON: None. FINDINGS: Liver: The liver is enlarged and measures 20 point cm. There is increased echogenicity consistent with fatty infiltration. The bile ducts are within normal limits. There is hepatic color flow. The direction of portal flow is hepatopetal. There is no demonstrated mass lesion. Gallbladder: Normal distended gallbladder. The gallbladder wall measures 1.2 mm. There is a negative sonographic Sue''s sign. There is no pericholecystic fluid. There are no gallstones. Common Bile Duct (C.B.D.): The common bile duct measures 5.2 mm. Pancreas: Normal size of the head, body and tail of the pancreas. There is normal echogenicity of the pancreas. There is no demonstrated pancreatic mass or cyst. Right Kidney: Normal size of the right kidney. The right kidney measures 11.8 cm x 5.3 cm x 4.5 cm. Normal renal cortex. The right cortex measures 1.4 cm. There is no demonstrated renal mass or cyst. There is no right hydronephrosis. US/Gallbladder IMPRESSION: Mild hepatomegaly and fatty infiltration of the liver. Electronically Signed: Augustin Calrk MD at 14:02 EDT , Service support ,
== END ==
PROVIDERS: PCP Family Medicine; Referring Provider Surgery; Visit Provider Surgery
DX: R10.11 Right upper quadrant pain (principal)
CPT/HCPCS: 76705